=== PATIENT | female | born 1945 | race Caucasian/White ===

== ENCOUNTER 2017-11-19 10:00 | Inpatient (IN) | payer OTHER ==
[~2017-11-19] VITALS: Ht 152.4 cm; Wt 92.1 kg
[2017-11-19] MEDS ORDERED: LIPITOR20 MG PO (14:40)
[2017-11-19] MEDS ORDERED: PROTONIX40 MG PO (14:40)
[2017-11-19] MEDS ORDERED: LAMISIL250 MG PO (14:41)
[2017-11-19] MEDS ORDERED: MOBIC15 MG PO (14:41)
[2017-11-19] MEDS ORDERED: SKELAXIN800 MG PO (14:41)
[2017-11-19] MEDS ORDERED: ZANTAC300 MG PO (14:41)
[2017-11-19] MEDS ORDERED: BONIVA150 MG PO (14:42)
[2017-11-19] MEDS ORDERED: FLONASE16 GM NS (14:42)
[2017-11-19] MEDS ORDERED: LYRICA50 MG PO (14:42)
[2017-11-19] MEDS ORDERED: SYMBICORT 80/10.2 GM IH (14:43)
[2017-11-19] MEDS ORDERED: EXELON PO (14:43)
[2017-11-19] MEDS ORDERED: ASA81 MG PO (14:44)
[2017-11-19] MEDS ORDERED: VENTOLIN HFA18 GM IH (14:44)
[2017-11-19] MEDS ORDERED: [UNRECOGNIZED DRUG - OTHER] PO (14:45)
[2017-11-19] MEDS ORDERED: CALTRATE 600+D1 EAC1 PO (14:45)
[2017-11-27] MEDS ORDERED: DOCUSATE SODIU100 MG PO (11:36)
[2017-11-27] MEDS ORDERED: CLONAZEPAM1 MG PO (11:37)
[2017-11-27] MEDS ORDERED: PERCOCET 5-3251 EACH PO (11:37)
== END 2017-11-27 15:45 | DRG 454 ==
LOC: O/R 11-26 05:00 → PED 11-26 05:00 → SURG 11-26 07:00 → PED 11-26 14:32
PROVIDERS: Orthopaedic Surgery Orthopaedic Surgery of the Spine
PROC: 0RG2071 Fusion of 2 or more Cervical Vertebral Joints with Autologous Tissue Substitute, Posterior Approach, Posterior Column, Open Approach (ICD-10-PCS; 2017-11-26)
PROC: 0RT30ZZ Resection of Cervical Vertebral Disc, Open Approach (ICD-10-PCS; 2017-11-26)
PROC: 07DS3ZZ Extraction of Vertebral Bone Marrow, Percutaneous Approach (ICD-10-PCS; 2017-11-26)
PROC: 0RG20A0 Fusion of 2 or more Cervical Vertebral Joints with Interbody Fusion Device, Anterior Approach, Anterior Column, Open Approach (ICD-10-PCS; principal; 2017-11-26 07:00)
DX: M50.021 Cervical disc disorder at C4-C5 level with myelopathy (principal); M47.12 Other spondylosis with myelopathy, cervical region

== ENCOUNTER 2021-02-23 10:45 | Inpatient (IN) | payer OTHER ==
[~2021-02-23] VITALS: Ht 165.1 cm; Wt 92.5 kg
[~2021-02-23 10:45] MED LIST: ASA81 MG PO; BONIVA150 MG PO; CALTRATE 600+D1 EAC1 PO; CLONAZEPAM1 MG PO; DOCUSATE SODIU100 MG PO; EXELON PO; FLONASE16 GM NS; LAMISIL250 MG PO; LIPITOR20 MG PO; LYRICA50 MG PO; MOBIC15 MG PO; PERCOCET 5-3251 EACH PO; PROTONIX40 MG PO; SKELAXIN800 MG PO; SYMBICORT 80/10.2 GM IH; VENTOLIN HFA18 GM IH; ZANTAC300 MG PO; [UNRECOGNIZED DRUG - OTHER] PO
[2021-02-26] MEDS ORDERED: RIVASTIGMINE1 EACH (10:57)
[2021-02-26] MEDS ORDERED: DICLOFENAC SOD100 GM (10:58)
[2021-02-26] MEDS ORDERED: AMOX-CLAV 875-1 EACH PO (12:07)
[2021-02-26] MEDS ORDERED: MEDROLPACK PO (12:07)
[2021-02-26] MEDS ORDERED: PERCOCET 5-3251 EACH PO (12:07)
[2021-02-26] MEDS ORDERED: COLACE100 MG PO (12:07)
[2021-02-26] MEDS ORDERED: NEURONTIN800 MG PO (12:07)
== END 2021-02-27 16:19 | disposition home or self-care (01) | DRG 455 ==
LOC: O/R 02-26 04:45 → PED 02-26 04:45 → SURG 02-26 10:45 → PED 02-26 15:24
PROVIDERS: ADMIT Orthopaedic Surgery Orthopaedic Surgery of the Spine; ATTEND Orthopaedic Surgery Orthopaedic Surgery of the Spine
PROC: 0SG00J1 Fusion of Lumbar Vertebral Joint with Synthetic Substitute, Posterior Approach, Posterior Column, Open Approach (ICD-10-PCS; 2021-02-26)
PROC: 0SB20ZZ Excision of Lumbar Vertebral Disc, Open Approach (ICD-10-PCS; 2021-02-26)
PROC: 0QB30ZZ Excision of Left Pelvic Bone, Open Approach (ICD-10-PCS; 2021-02-26)
PROC: 07DR0ZZ Extraction of Iliac Bone Marrow, Open Approach (ICD-10-PCS; 2021-02-26)
PROC: 0SG00A0 Fusion of Lumbar Vertebral Joint with Interbody Fusion Device, Anterior Approach, Anterior Column, Open Approach (ICD-10-PCS; principal; 2021-02-26 07:00)
DX: M48.062 Spinal stenosis, lumbar region with neurogenic claudication (principal); M43.16 Spondylolisthesis, lumbar region